=== PATIENT | female | born 1950 | race Caucasian/White ===

== ENCOUNTER 2017-11-12 15:44 | Outpatient (CLI) | payer MEDICARE | END 2017-11-12 15:45 | disposition home or self-care (01) | LOC: BICMAMMO 15:44 | PROVIDERS: ATTEND Obstetrics & Gynecology | DX: Z12.31 Encounter for screening mammogram for malignant neoplasm of breast (principal); R92.1 Mammographic calcification found on diagnostic imaging of breast; Z80.3 Family history of malignant neoplasm of breast | CPT/HCPCS: 77063; 77067 ==

== ENCOUNTER 2018-12-06 12:32 | Emergency (ER) | payer MEDICARE ==
[2018-12-06] MEDS ORDERED: Ibuprofen 800 MG TAB ONE (13:31)
[2018-12-06] MEDS ORDERED: Dexamethasone 4 mg/ml Vial ONE ×2 (13:31→13:35)
== END 2018-12-06 13:57 | disposition home or self-care (01) ==
LOC: ERS 12:32
DX: J02.9 Acute pharyngitis, unspecified (principal); E11.9 Type 2 diabetes mellitus without complications; I10 Essential (primary) hypertension; E78.5 Hyperlipidemia, unspecified; F03.90 Unspecified dementia, unspecified severity, without behavioral disturbance, psychotic disturbance, mood disturbance, and anxiety; F41.9 Anxiety disorder, unspecified; Z79.899 Other long term (current) drug therapy
CPT/HCPCS: 87081; 87430; 99283; J1100

== ENCOUNTER 2019-02-12 11:49 | Emergency (ER) | payer MEDICARE ==
[2019-02-12 13:13] LABS: #Eosinphils 0.1 thou/uL (0.0-0.7); #Lymphocytes 1.2 thou/uL (1.20-3.40); #Monocytes 0.5 thou/uL (0.11-0.59); #Neutrophils 3.6 thou/uL (1.40-6.50); %Basophils 0.8 % (0.0-1.0); %Eosinophils 1.7 % (0.0-10.0); %Lymphocytes 22.7 % (21.0-51.0); %Monocytes 8.9 % (0.0-10.0); %Neutrophils 65.9 % (42.0-75.0); Hemoglobin 15.7 g/dL (12.0-16.0); Mean Corpuscular Hemoglobin 28.4 pg (27.0-31.0); Mean Corpuscular Volume 83.7 fL (78.0-98.0); Mean Platelet Volume 8.2 fL (7.4-10.4); Platelet Count 205 thou/uL (130-400); RBC Distribution Width 12.4 % (11.5-14.5); Red Blood Cell (RBC) Count 5.51 mill/uL (4.20-5.40); White Blood Cell (WBC) Count 5.5 thou/uL (4.8-10.8)
[2019-02-12 13:19] LABS: Bilirubin Negative (Negative); Blood, Urine Negative (Negative); Clarity Clear (Clear); Glucose, Urine (Dipstick) Normal (Negative); Leukocyte 500 Leu/uL (Negative); Nitrite Negative (Negative); Protein, Urine (Dipstick) 20 mg/dL (Neg-Trace); WBC/HPF 21-50 HPF (0-3)
--- NOTE | 2019-02-12 13:23 | CT ---
CT OF HEAD NONCONTRAST: INDICATION: Altered mental status. FINDINGS: There is no acute intracranial hemorrhage, mass effect, or midline shift. Ventricular system is norm al in size. Imaged paranasal sinuses reveal no acute fluid level. 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 IMPRESSION: No acute intracranial hemorrhage or mass effect. POS: [facility]
--- NOTE | 2019-02-12 13:31 | RAD ---
XR Chest 1 View Portable HISTORY: Altered mental status COMPARISON: None FINDINGS: The heart size is normal. The lungs are well expanded without focal areas of consolidation, pneumothorax or pleural effusions. IMPRESSION: No radiographic evidence of acute cardiopulmonary process.
[2019-02-12 13:32] LABS: Bacteria/HPF 2+ HPF (None Seen)
[2019-02-12 13:33] LABS: Calcium Oxalate Crystals 2+ HPF (None Seen)
[2019-02-12 13:34] LABS: ALT (SGPT) 13 U/L (8-55); AST (SGOT) 16 U/L (5-34); Albumin 4.7 g/dL (3.4-4.8); Alkaline Phosphatase 127 U/L (40-150); Anion Gap 11 mmol/L (10-20); BUN (Urea Nitrogen) 15 mg/dL (9.8-20.1); Bilirubin, Total 1.3 mg/dL (0.2-1.2); Calc. Creatinine Clearance 0 mL/min (70-130); Calcium 10.7 mg/dL (7.8-10.44); Carbon Dioxide 30 mmol/L (23-31); Chloride 104 mmol/L (98-107); Estimated GFR-MDRD Greater than 90; Globulin 2.6 g/dL (2.4-3.5); Glucose 77 mg/dL (80-115); Potassium 3.7 mmol/L (3.5-5.1); Protein, Total 7.3 g/dL (6.0-8.3); Sodium 141 mmol/L (136-145)
[2019-02-12] MEDS ORDERED: Nitrofurantoin Monohyd/M-Cryst 100 MG CAP PO SCH (14:45)
--- NOTE | 2019-02-12 15:45 | MRI ---
MRI OF BRAIN NONCONTRAST: 02/12/19 INDICATION: Altered mental status. COMPARISON: Head CT earlier same day. FINDINGS: There is a punctate area of increased signal on diffusion weighted imaging involving the anterior lef t k[place]. This could be artifact. Otherwise there is no acute infarction. No mass effect, midline shift , or ventriculomegaly. Mild chronic ischemic disease of the cerebral white matter is present. There i s mild mucosa thickening of the paranasal sinuses. IMPRESSION: Presumed punctate artifact at the left paramedian kodak, otherwise no acute infarction. Mild chronic ischemic disease. POS: [facility]
== END 2019-02-12 16:55 | disposition home or self-care (01) ==
LOC: ERS 11:49
DX: N39.0 Urinary tract infection, site not specified (principal); E11.9 Type 2 diabetes mellitus without complications; E78.5 Hyperlipidemia, unspecified; E78.00 Pure hypercholesterolemia, unspecified; I10 Essential (primary) hypertension; F41.9 Anxiety disorder, unspecified; F03.90 Unspecified dementia, unspecified severity, without behavioral disturbance, psychotic disturbance, mood disturbance, and anxiety; Z79.899 Other long term (current) drug therapy
CPT/HCPCS: 70450; 70551; 71045; 80053; 81003; 81015; 84484; 85025; 93005

== ENCOUNTER 2019-03-06 13:52 | Outpatient (CLI) | payer MEDICARE ==
[~2019-03-06 13:52] MED LIST: ISOVUE-370 76%-LOCM 1 ML ONE
--- NOTE | 2019-03-06 15:12 | CT ---
EXAM: Abdomen and pelvic CT scan with and without contrast: HISTORY: Lower abdominal pain, back pain COMPARISON: 01/17/2009 CT exam FINDINGS: No acute abnormality at the lung bases is visualized. Liver: Unremarkable. Gallbladder: Partially contracted Pancreas: Unremarkable Spleen: Unremarkable. Adrenal glands: Unremarkable. Kidneys: No renal calculus or acute obstruction. No solid or cystic mass. Bowel: Redemonstration of prominent wall thickening of the sigmoid colon. Minimal adjacent pericoloni c fat stranding is present. There are numerous colonic diverticula most notable at the sigmoid colon no evidence of small bowel obstruction. Urinary Bladder: The urinary bladder is unremarkable. Adenopathy: No adenopathy within the abdomen or pelvis. Free Air: No free air. Ascites: No ascites. Osseous structures: Scattered, chronic appearing osseous degenerative changes. There is postoperative fixation of the lower lumbar spine. IMPRESSION: Marked abnormal wall thickening of the sigmoid colon with multiple diverticula, and minimal adjacent pericolonic fat stranding. This may relate to colonic wall hypertrophy from diverticular disease, although the possibility of an underlying colonic malignancy cannot be excluded, and should be furthe r assessed with dedicated colonoscopy.
== END 2019-03-06 13:53 | disposition home or self-care (01) ==
LOC: BICCT 13:52
PROVIDERS: ATTEND Obstetrics & Gynecology
DX: R10.30 Lower abdominal pain, unspecified (principal); M54.5 Low back pain; K57.30 Diverticulosis of large intestine without perforation or abscess without bleeding
CPT/HCPCS: 74178; Q9966

== ENCOUNTER 2020-06-22 14:21 | Outpatient (CLI) | payer MEDICARE ==
--- NOTE | 2020-06-24 11:23 | MMO ---
Bilateral MAMMO Bilat Screen [facility]. CLINICAL HISTORY: Patient is 70 years old and is seen for screening. The patient has no personal history of cancer. VIEWS: The views performed were: bilateral craniocaudal with tomosynthesis and bilateral mediolateral oblique with tomosynthesis. FILMS COMPARED: The present examination has been compared to prior imaging studies performed at [facility] on 12/02/2018, and at [facility] on 10/25/2015, 10/24/2016 and 11/12/2017. This study has been interpreted with the assistance of computer-aided detection. MAMMOGRAM FINDINGS: The breasts are heterogeneously dense, which could obscure a lesion on mammography. There are stable benign appearing calcifications seen in both breasts. There are no suspicious masses, suspicious calcifications, or new areas of architectural distortion. IMPRESSION: THERE IS NO MAMMOGRAPHIC EVIDENCE OF MALIGNANCY. A ROUTINE FOLLOW-UP MAMMOGRAM IN 1 YEAR IS RECOMMENDED. THE RESULTS OF THIS EXAM WERE SENT TO THE PATIENT. ACR BI-RADS Category 2 - Benign finding MAMMOGRAPHY NOTE: 1. A negative mammogram report should not delay a biopsy if a dominant of clinically suspicious mass is present. 2. Approximately 10% to 15% of breast cancers are not detected by mammography. 3. Adenosis and dense breasts may obscure an underlying neoplasm. Reported by: JOYA SMILEY MD Electonically Signed: [id number]
== END 2020-06-22 14:22 | disposition home or self-care (01) ==
LOC: BICMAMMO 14:21
PROVIDERS: ATTEND Obstetrics & Gynecology
DX: Z12.31 Encounter for screening mammogram for malignant neoplasm of breast (principal)
CPT/HCPCS: 77063; 77067

== ENCOUNTER 2021-06-27 07:27 | Day surgery (SDC) | payer MEDICARE ==
[2021-06-26 08:41] VITALS: BMI 20.6
[2021-06-27 10:42] LABS: Color Of CSF Supernatant COLORLESS (Colorless); Tube # 1; Unspun CSF Color COLORLESS (Colorless)
[2021-06-27 10:55] LABS: CSF, Glucose 63 mg/dl (40-70); CSF, Protein 63 mg/dL (15-40)
[2021-06-27 11:05] LABS: CSF Source CSF; Clarity Clear (Clear); Tube # 4
[2021-06-27 11:06] LABS: CSF RBC Count - Manual 4 /cu.mm (None Seen); CSF WBC/NonHematics Count-Man 3 /cu.mm (0-5)
[2021-06-27 11:21] LABS: ALT (SGPT) 42 U/L (8-55); AST (SGOT) 31 U/L (5-34); Albumin 4.3 g/dL (3.4-4.8); Alkaline Phosphatase 118 U/L (40-110); Anion Gap 10 mmol/L (10-20); BUN (Urea Nitrogen) 15 mg/dL (9.8-20.1); Bilirubin, Total 2.5 mg/dL (0.2-1.2); Calc. Creatinine Clearance 63 mL/min (70-130); Calcium 10.4 mg/dL (7.8-10.44); Carbon Dioxide 30 mmol/L (23-31); Chloride 103 mmol/L (98-107); Globulin 2.7 g/dL (2.4-3.5); Glucose 106 mg/dL (83-110); Sodium 139 mmol/L (136-145)
[2021-06-27 12:21] VITALS: BP 140/64
[2021-06-27 12:25] LABS: Ref Lab Test Ordered PARANEOPLASTIC PANEL; Reference Lab Name LABCORP
[2021-06-27 12:27] LABS: Ref Lab Test Ordered 14-3-3 PROTEIN; Reference Lab Name LABCORP
== END 2021-06-27 11:00 | disposition home or self-care (01) ==
LOC: RAD 07:27
PROVIDERS: ATTEND Psychiatry & Neurology Neurology
PROC: 009U3ZX Drainage of Spinal Canal, Percutaneous Approach, Diagnostic (ICD-10-PCS; principal; 2021-06-27)
DX: R47.01 Aphasia (principal); I10 Essential (primary) hypertension; E78.00 Pure hypercholesterolemia, unspecified; M19.90 Unspecified osteoarthritis, unspecified site; Z79.899 Other long term (current) drug therapy; Z88.0 Allergy status to penicillin; Z98.1 Arthrodesis status
CPT/HCPCS: 62270; 80053; 82945; 84157; 84425; 89051

== ENCOUNTER 2021-07-04 10:17 | Outpatient (CLI) | payer MEDICARE ==
[2021-07-04] MEDS ORDERED: Magnevist 469MG/ML 20 ML VIAL ONE (12:12)
== END 2021-07-04 10:18 | disposition home or self-care (01) ==
LOC: MRI 10:17
PROVIDERS: ATTEND Psychiatry & Neurology Neurology
DX: R47.01 Aphasia (principal)
CPT/HCPCS: 70553; 95816; 95957

== ENCOUNTER 2021-08-21 07:27 | Day surgery (SDC) | payer MEDICARE ==
[2021-08-16 13:38] VITALS: BMI 21.0
[2021-08-21 08:30] VITALS: BP 155/76; TEMP 98.6
[2021-08-21 15:47] LABS: Ref Lab Test Ordered EPC2
[2021-08-23 14:41] LABS: VDRL, CSF Non Reactive (Non Rea:<1:1)
[2021-08-23 20:36] LABS: CMV DNA-PCR Test Negative (Negative)
== END 2021-08-21 10:35 | disposition home or self-care (01) ==
LOC: RAD 07:27
PROVIDERS: ATTEND Psychiatry & Neurology Neurology
PROC: 009U3ZX Drainage of Spinal Canal, Percutaneous Approach, Diagnostic (ICD-10-PCS; principal; 2021-08-21)
DX: R47.01 Aphasia (principal); Z79.82 Long term (current) use of aspirin; Z79.899 Other long term (current) drug therapy; Z88.0 Allergy status to penicillin
CPT/HCPCS: 62270; 84182; 86255; 86592; 87116; 87205; 87206; 87497; 87529

== ENCOUNTER 2021-10-16 12:41 | Outpatient (CLI) | payer MEDICARE | END 2021-10-16 12:42 | disposition home or self-care (01) | LOC: EEG 12:41 | PROVIDERS: ATTEND Psychiatry & Neurology Neurology | DX: R47.01 Aphasia (principal) | CPT/HCPCS: 95816; 95957 ==

== ENCOUNTER 2021-10-18 14:33 | Outpatient (CLI) | payer MEDICARE | END 2021-10-18 14:34 | disposition home or self-care (01) | LOC: BICMAMMO 14:33 | PROVIDERS: ATTEND Obstetrics & Gynecology | DX: Z12.31 Encounter for screening mammogram for malignant neoplasm of breast (principal); Z80.3 Family history of malignant neoplasm of breast | CPT/HCPCS: 77063; 77067 ==

== ENCOUNTER 2022-01-15 12:48 | Outpatient (CLI) | payer MEDICARE | END 2022-01-15 12:49 | disposition home or self-care (01) | LOC: EEG 12:48 | PROVIDERS: ATTEND Psychiatry & Neurology Neurology | DX: G93.81 Temporal sclerosis (principal) | CPT/HCPCS: 95816; 95957 ==